=== PATIENT | female | born 1955 | race Caucasian/White ===

== ENCOUNTER 2016-10-17 11:30 | Emergency (ER) | payer MEDICARE, OTHER ==
[~2016-10-17] VITALS: Ht 165.1 cm; Wt 59.1 kg
[2016-10-17 11:35] VITALS: Ht 165.1 cm; Wt 59.1 kg
--- NOTE | 2016-10-17 11:48 | ERA ---
ER Documentation Chief Complaint Date/Time DATE: 10/17/16 TIME: 11:48 Chief Complaint Headache HPI The patient is a 63-year-old female, presenting to the ER because of intermittent headache, dizziness for a week after starting the medication for Helicobacter pylori gastritis including omeprazole, azithromycin, amoxicillin. The headache is of vague and intermittent. She denies fever, chills, neck pain , chest pain, dyspnea. She complains of epigastric abdominal discomfort, also said that with burping and worse with Helicobacter pylori gastritis medication. She complained of nausea and vomiting mostly mucus. She denies dysuria, diarrhea. She does not smoke or drink Past medical history: Hypertension, dyslipidemia Past surgical history: None ROS All systems reviewed and are negative except as per history of present illness. Medications Home Meds Active Scripts Ondansetron (Ondansetron Odt) 4 Mg Tab.rapdis, 4 MG PO Q6H Y for NAUSEA AND/OR VOMITING, #10 TAB Prov:SCOTT WONG MD 10/17/16 Ibuprofen* (Motrin*) 600 Mg Tab, 600 MG PO Q6H Y for PAIN AND OR ELEVATED TEMP, #20 TAB Prov:SCOTT WONG MD 10/17/16 Reported Medications Amoxicillin* (Amoxicillin*) 500 Mg Cap, 1000 MG PO BID, #20 CAP STARTED 10-05-16 FOR 10 DAYS PT STOPPED FOR STOMACH ACHE AND DIAHRREA 10/17/16 Clarithromycin* (Biaxin*) 500 Mg Tablet, 500 MG PO BID, TAB STARTED 10-05-16 FOR 10 DAYS PT STOPPED FOR STOMACH ACHE AND DIAHRREA 10/17/16 Amlodipine Besylate* (Norvasc*) 5 Mg Tablet, 5 MG PO DAILY, TAB 10/17/16 Omeprazole* (Omeprazole*) 20 Mg Capsule.dr, 20 MG PO DAILY, #30 CAP 10/17/16 Simvastatin* (Zocor*) 40 Mg Tablet, 40 MG PO QHS, #30 TAB 10/17/16 Aspirin (Low Dose Aspirin) 81 Mg Tablet.dr, 81 MG PO DAILY, #30 TAB 10/17/16 Allergies Allergies: Coded Allergies: No Known Allergy (Unverified , 10/17/16) Physical Exam Vitals Vital Signs Date Time Temp Pulse Resp B/P Pulse Ox O2 Delivery O2 Flow Rate FiO2 10/17/16 15:39 58 18 121/87 100 Room Air 10/17/16 11:50 98.5 60 17 159/88 100 Room Air 10/17/16 11:35 98.3 60 18 145/85 100 Physical Exam Const: No acute distress. Head: Atraumatic. Eyes: Normal Conjunctiva. ENT: Normal External Ears, Nose and Mouth. Neck: Full range of motion. No meningismus. Resp: Clear to auscultation bilaterally. Cardio: Regular rate and rhythm, no murmurs. Abd: Soft, non distended, normal bowel sounds, mild epigastric discomfort. No rigidity, rebound, CVA tenderness Skin: No petechiae or rashes. Back: No midline or flank tenderness. Ext: No cyanosis, or edema. Neur: Awake and alert. No focal deficit Psych: Normal Mood and Affect. Result Diagram: 10/17/16 1148 10/17/16 1148 Results 24 hrs Laboratory Tests Test 10/17/16 11:48 Activated Partial Thromboplast Time 35.6Sec Alanine Aminotransferase (ALT/SGPT) 24IU/L Albumin 4.3g/dl Albumin/Globulin Ratio 1.22 Alkaline Phosphatase 74IU/L Anion Gap 19 Aspartate Amino Transf (AST/SGOT) 19IU/L Basophils # 0.010^3/ul Basophils % 0.2% Blood Urea Nitrogen 15mg/dl Calcium Level 10.0mg/dl Carbon Dioxide Level 24mmol/L Chloride Level 103mmol/L Creatinine 0.88mg/dl Direct Bilirubin 0.00mg/dl Eosinophils # 0.110^3/ul Eosinophils % 1.1% Globulin 3.50g/dl Glucose Level 111mg/dl Hematocrit 39.3% Hemoglobin 14.2g/dl INR International Normalized Ratio 0.93 Indirect Bilirubin 0.6mg/dl Lipase 101U/L Lymphocytes # 1.210^3/ul Lymphocytes % 25.2% Mean Corpuscular Hemoglobin 32.2pg Mean Corpuscular Hemoglobin Concent 36.1g/dl Mean Corpuscular Volume 89.1fl Mean Platelet Volume 10.3fl Monocytes # 0.610^3/ul Monocytes % 12.1% Neutrophils # 2.910^3/ul Neutrophils % 61.2% Nucleated Red Blood Cells # 0.010^3/ul Nucleated Red Blood Cells % 0.0/100WBC Platelet Count 42998^3/UL Potassium Level 3.7mmol/L Prothrombin Time 12.5Sec Prothrombin Time Ratio 1.0 Red Blood Count 4.4110^6/ul Red Cell Distribution Width 11.0% Sodium Level 142mmol/L Total Bilirubin 0.6mg/dl Total Protein 7.8g/dl White Blood Count 4.710^3/ul Current Medications Medications (Trade) Dose Ordered Sig/Luis Route PRN Reason Start Time Stop Time Status Last Admin Dose Admin Ondansetron HCl (Zofran Inj) 4 mg ONCE STAT IV 10/17/16 12:08 10/17/16 12:09 DC 10/17/16 12:11 Ondansetron HCl (Zofran Inj) 4 mg ONCE STAT IV 10/17/16 14:03 10/17/16 14:04 DC 10/17/16 14:07 Ketorolac Tromethamine (Toradol) 30 mg ONCE STAT IV 10/17/16 14:21 10/17/16 14:22 DC 10/17/16 14:30 Procedures/[place] [address] Radiology Main Line: [phone] DIAGNOSTIC IMAGING REPORT Patient: MARS AMADO : 1955 Age: 61 Sex: F MR #: [id number] DOS: 10/17/16 1157 Ordering MD: SCOTT WONG MD Location: E/R Room/Bed: PROCEDURE: CT Brain without. CLINICAL INDICATION: Headache. TECHNIQUE: A CT of the brain was performed on multidetector high-resolution CT scanner utilizing axial sections from the skull base through the vertex without contrast. The scan was reviewed in soft tissue brain and high frequency resolution bone algorithm windows. Images were reviewed on a high- resolution PACS workstation. One or more the following does reduction techniques were utilized: Automated exposure control, adjustment of the mA/ or kV according to patient's size, or use of iterative reconstruction technique. The exam CTDI = 45.01 mGy and the DLP = 630.2 mGy-cm. COMPARISON: None available. FINDINGS: The ventricles and sulci are age-appropriate. There is no intracranial hemorrhage, mass effect or midline shift. No abnormal intra-axial or extra- axial fluid collections are seen. The sarmiento/white matter differentiation is preserved. There are trace scattered foci of hypoattenuation in the white matter, which are nonspecific in etiology but likely reflect chronic small vessel ischemic changes. There are trace intracranial vascular calcifications consistent with atherosclerosis. The visualized paranasal sinuses are essentially clear. IMPRESSION: 1. No acute intracranial hemorrhage, transcortical infarction or mass effect. 2. Minimal intracranial atherosclerosis and chronic small vessel ischemic changes. RPTAT: HFN .Laurel Canela MD, MD Date Time Electronically viewed and signed by .Laurel Canela MD, MD on 10/17/2016 13: 47 .N/ CC: SCOTT WONG MD MEDICAL MAKING DECISION: The patient is a 61-year-old female, presenting to the ER because of acute headache, nausea, most likely due to adverse effect of the medication that she was taking for Helicobacter pylori gastritis. She was treated with Zofran 4 mg IV 2 for nausea and Toradol 30 IV for headache with good response. The differential diagnoses considered include but are not limited to subarachnoid hemorrhage, occult trauma, CVA, meningitis, encephalitis , hypertension, tension, migraine, cluster, narcotic withdrawal, cervical spine disease. Departure Diagnosis: Primary Impression: Headache Condition: Good Comments She was discharged with Zofran ODT and Motrin I discussed the findings with the patient. I advised the patient to follow-up with the primary physician in about 1-2 days, sooner if needed and return if any concern. SCOTT WONG MD Oct 17, 2016 11:48
[2016-10-17 11:50] VITALS: TEMP 98.5
[2016-10-17 12:02] LABS: ADD SCAN DIFF NO
[2016-10-17] MEDS ORDERED: ONDANSETRON 4 MG INJ IV STA ×2 (12:08→14:03)
[2016-10-17] MEDS ORDERED: SIMV40TA2 PO (12:16)
[2016-10-17] MEDS ORDERED: ASPI-664 PO (12:16)
[2016-10-17] MEDS ORDERED: AMLO5TAB4 PO (12:17)
[2016-10-17] MEDS ORDERED: OMEP20CA16 PO (12:17)
[2016-10-17] MEDS ORDERED: CLAR500T39 PO (12:19)
[2016-10-17] MEDS ORDERED: AMO500 PO (12:20)
[2016-10-17 12:21] LABS: ALBUMIN 4.3 g/dl (3.3-4.9); BASOPHILS % 0.2 % (0.0-2.0); EOSINOPHILS # 0.1 10^3/ul (0.0-0.5); EOSINOPHILS % 1.1 % (0.0-7.0); HEMATOCRIT 39.3 % (37.0-47.0); HEMOGLOBIN 14.2 g/dl (12.0-16.0); LYMPHOCYTES # 1.2 10^3/ul (0.8-2.9); LYMPHOCYTES % 25.2 % (15.0-51.0); MEAN CORPUSCULAR HEMOGLOBIN 32.2 pg (29.0-33.0); MEAN CORPUSCULAR HGB CONC 36.1 g/dl (32.0-37.0); MEAN CORPUSCULAR VOLUME 89.1 fl (82.0-101.0); MEAN PLATELET VOLUME 10.3 fl (7.4-10.4); MONOCYTE # 0.6 10^3/ul (0.3-0.9); MONOCYTES % 12.1 % (0.0-11.0); NEUTROPHIL # 2.9 10^3/ul (1.6-7.5); NEUTROPHILS % 61.2 % (39.0-77.0); PLATELET COUNT 281 10^3/UL (140-415); POTASSIUM 3.7 mmol/L (3.5-5.1); RED BLOOD COUNT 4.41 10^6/ul (4.20-5.40); WHITE BLOOD COUNT 4.7 10^3/ul (4.8-10.8)
[2016-10-17 12:23] LABS: BILIRUBIN,INDIRECT 0.6 mg/dl (0-1.1); BILIRUBIN,TOTAL 0.6 mg/dl (0.2-1.3); CREATININE 0.88 mg/dl (0.44-1.00)
[2016-10-17 12:24] LABS: ALBUMIN/GLOBULIN RATIO 1.22; INR 0.93; PROTIME 12.5 Sec (12.2-14.2); TOTAL PROTEIN 7.8 g/dl (6.1-8.1)
[2016-10-17 12:25] LABS: PARTIAL THROMBOPLASTIN TIME 35.6 Sec (25.0-35.0)
--- NOTE | 2016-10-17 13:47 | RADRPT ---
PROCEDURE: CT Brain without. CLINICAL INDICATION: Headache. TECHNIQUE: A CT of the brain was performed on multidetector high-resolution CT scanner utilizing a xial sections from the skull base through the vertex without contrast. The scan was reviewed in sof t tissue brain and high frequency resolution bone algorithm windows. Images were reviewed on a high -resolution PACS workstation. One or more the following does reduction techniques were utilized: Aut omated exposure control, adjustment of the mA/ or kV according to patient's size, or use of iterativ e reconstruction technique. The exam CTDI = 45.01 mGy and the DLP = 630.2 mGy-cm. COMPARISON: None available. FINDINGS: The ventricles and sulci are age-appropriate. There is no intracranial hemorrhage, mass effect or mi dline shift. No abnormal intra-axial or extra-axial fluid collections are seen. The sarmiento/white jackelyn er differentiation is preserved. There are trace scattered foci of hypoattenuation in the white matter, which are nonspecific in etio logy but likely reflect chronic small vessel ischemic changes. There are trace intracranial vascula r calcifications consistent with atherosclerosis. The visualized paranasal sinuses are essentially c lear. IMPRESSION: 1. No acute intracranial hemorrhage, transcortical infarction or mass effect. 2. Minimal intracranial atherosclerosis and chronic small vessel ischemic changes. RPTAT: HFN .Laurel Canela MD, MD Date Time Electronically viewed and signed by .Laurel Canela MD, MD on 10/17/2016 13:47 .N/
[2016-10-17] MEDS ORDERED: KETOROLAC 30 MG INJ IV STA (14:21)
[2016-10-17] MEDS ORDERED: IBUP-1542 PO (14:30)
[2016-10-17] MEDS ORDERED: ONDA4TAB14 PO (14:31)
[2016-10-17 15:39] VITALS: BP 121/87; PULSE 58; RESP 18
== END 2016-10-17 15:32 | disposition home or self-care (01) ==
LOC: E/R 11:30
DX: R51 Headache (principal); R11.2 Nausea with vomiting, unspecified; I10 Essential (primary) hypertension; R40.2142 Coma scale, eyes open, spontaneous, at arrival to emergency department; R40.2362 Coma scale, best motor response, obeys commands, at arrival to emergency department; R40.2252 Coma scale, best verbal response, oriented, at arrival to emergency department; R10.13 Epigastric pain; Z79.82 Long term (current) use of aspirin
CPT/HCPCS: 36415; 70450; 80053; 83690; 85025; 85610; 85730; 96374; 96375; 96376; 99285; J1885; J2405